=== PATIENT | male | born 1955 | race Caucasian/White ===

== ENCOUNTER 2017-06-02 05:44 | Day surgery (SDC) | payer BC ==
[~2017-06-02] VITALS: Ht 180.3 cm; Wt 88.0 kg
[2017-06-02] VITALS (15 sets, daily range): BP systolic 115–150; BP diastolic 59–86; PULSE 76–93; RESP 12–19; Ht 180.3 cm; Wt 88.0 kg
[2017-06-02] MEDS ORDERED: CEFAZOLIN 2 GM/50 ML (PMX) 50 ML IVPB ONE (06:00)
[2017-06-02] MEDS ORDERED: SOD CHLORIDE 0.9% 1,000 ML IV SCH (06:00)
[2017-06-02] MEDS ORDERED: BUPIVACAINE 0.25% (MPF) 30 ML INJ ONE (06:47)
[2017-06-02] MEDS ORDERED: BUPIVACAINE 0.25% (MPF) 30 ML INJ INJ ONE (07:25)
[2017-06-02] MEDS ORDERED: FENTAnyl 50 MCG/ML VIAL ONE (07:33)
[2017-06-02] MEDS ORDERED: MIDAZOLAM 1 MG/ML 2 ML INJ ONE (07:33)
[2017-06-02] MEDS ORDERED: PROPOFOL 20 ML ONE (07:33)
[2017-06-02] MEDS ORDERED: LIDOCAINE 2% (SDV) 5 ML INJ ONE (07:33)
[2017-06-02] MEDS ORDERED: ROPIVACAINE 0.2% 20 ML VIAL ONE (07:34)
[2017-06-02] MEDS ORDERED: LABETALOL HCL 20MG INJ ONE (07:54)
[2017-06-02] MEDS ORDERED: CEFAZOLIN 1 GM INJ ONE (07:59)
[2017-06-02] MEDS ORDERED: DEXAMETHASONE 4 MG/ML 1 ML INJ ONE (08:02)
[2017-06-02] MEDS ORDERED: ONDANSETRON 4 MG INJ ONE (08:02)
--- NOTE | 2017-06-02 08:20 | RADRPT ---
PROCEDURE: XR Chest. CLINICAL INDICATION: pre-op (inguinal repair) TECHNIQUE: Single frontal view of the chest was obtained COMPARISON: None FINDINGS: The cardiomediastinal silhouette is within normal limits. There are mild atherosclerotic calcifications of the thoracic aorta. A 7 mm spherical density projecting in the left perihilar region may represent a calcified granuloma or vessel viewed on end. There is no evidence of pulmonary vascular congestion. No pneumothorax, pleural effusion, or parenchymal consolidation is identified. Minimal left basilar atelectasis is noted. There are degenerative changes of the visualized spine. IMPRESSION: 1. No evidence of an acute cardiopulmonary process. 2 Left perihilar 7 mm granuloma. RPTAT: EE Physician Andree Date Time Electronically viewed and signed by Physician Andree on 06/02/2017 08:19 /
--- NOTE | 2017-06-02 08:52 | OPR ---
Date/Time of Note Date/Time of Note DATE: 06/02/17 TIME: 08:45 Operative Report Procedure Date: Jun 02, 2017 Preoperative Diagnosis very large incarcerated left inguinal hernia Postoperative Diagnosis very large left incarcerated inguinal hernia Operation Performed 1. large left incarcerated inguinal hernia repair with ultra hernia system large mesh 2. localized adjacent tissue transfer with the use of skin flaps 16 sq cm defect 3. therapeutic injection of subcutaneous marcaine cpt code [id number] Surgeon: Raimundo DOUGHERTY Indications This is a 62-year-old male with a very large incarcerated left inguinal hernia. Risks alternatives benefits and percent were discussed the patient. Patient expressed understanding and consents to the operation. Procedure Description Patient is taken to the OR and prepped and draped in usual sterile fashion surgical timeout was performed IV antibiotics given. Due to the extensive large incarcerated left inguinal hernia the anatomy appeared to be distorted landmarks are identified of ASIS and pubic tubercle. Oblique left inguinal incision is made with a 15 blade. Dissection cautery was carried down to the external oblique fascia. The external oblique fascia is appears obliterated due to the large incarcerated hernia which is splayed out the tissues and there appears to be no external oblique fascia at the hernia site. Scar tissue was extensively dissected. Indirect incarcerated hernia is reduced. Superior inferior tissue flaps are created. Cord structures identified. The very large indirect hernia sac is identified and opened. The incarcerated contents are then reduced. The hernia sac is then suture ligated with 0 Vicryl suture. The disc portion of the ultra pro hernia system mesh was used to bolster the hernia defect. This is secured in place with a running 0 Prolene from the pubic tubercle along the shelving edge of the inguinal ligament and the disc is secured to the internal oblique with interrupted 3-0 Vicryl. Onlay mesh is secured in a similar fashion with a running 0 Prolene from the pubic tubercle along the shelving edge of the inguinal ligament. Strep to created and reapproximated around the cord structures to recreate the inguinal ring with interrupted 0 Prolene. The onlay mesh was also secured to the internal oblique with interrupted 3-0 Vicryl. What is remaining of the external fascia is closed with a running 3-0 Vicryl. Erica's fascia is closed with interrupted 3- 0 Vicryl. Due to the large hernia defect superior and inferior skin flaps are created and localized adjacent to his transfer with the skin flaps was performed. The flaps were reapproximated with interrupted 3-0 Vicryl. Erica' s was closed with interrupted 3-0 Vicryl. Skin is closed using skin francisco. Therapeutic subcutaneous Marcaine is injected along the incision line. Dry dressings were applied. Raimundo DOUGHERTY Jun 02, 2017 08:51
[2017-06-02] MEDS ORDERED: PROCHLORPERAZINE 10 MG INJ IV PRN (09:00)
[2017-06-02] MEDS ORDERED: hydrALAzine 20 MG INJ IV PRN (09:00)
[2017-06-02] MEDS ORDERED: HYDROCODONE/APAP (5/325) TAB PO ONE (09:00)
[2017-06-02] MEDS ORDERED: HYDROmorphONE (0.2 MG/ML) 10ML SYG IV PRN ×3 (09:00)
[2017-06-02] MEDS ORDERED: MEPERIDINE 25 MG INJ IV PRN (09:00)
[2017-06-02] MEDS ORDERED: LABETALOL HCL 20MG INJ IV PRN (09:00)
[2017-06-02] MEDS ORDERED: ONDANSETRON 4 MG INJ IV PRN (09:00)
[2017-06-02] MEDS ORDERED: METOCLOPRAMIDE 10 MG INJ IV PRN (09:00)
[2017-06-02] MEDS ORDERED: DIPHENHYDRAMINE 50 MG INJ IV PRN (09:00)
[2017-06-02] MEDS ORDERED: POLYMYXIN/BACITRACIN 1L IRRIG ONE (09:39)
== END 2017-06-02 11:10 | disposition home or self-care (01) ==
LOC: SDS 05:44
PROVIDERS: ATTEND Surgery
DX: K40.30 Unilateral inguinal hernia, with obstruction, without gangrene, not specified as recurrent (principal); I10 Essential (primary) hypertension
CPT/HCPCS: 49507; 71010; C1781; J0690; J1100; J2175; J2250; J2405; J2795; J3010; Z7512; Z7610